=== PATIENT | female | born 1985 | race African-American/Black ===

== ENCOUNTER 2017-05-04 02:36 | Inpatient (IN) | payer SELFPAY ==
[2017-05-04 03:48] LABS: PTT 23.6 SEC (22.9-36.1); Prothrombin Time 15.3 SEC (12.0-14.7)
[2017-05-04 03:53] LABS: ALT (SGPT) 9 U/L (8-55); AST (SGOT) 14 U/L (5-34); Alkaline Phosphatase 33 U/L (40-150); Anion Gap 11 mmol/L (10-20); BUN (Urea Nitrogen) 9 mg/dL (7.0-18.7); Bilirubin, Total 0.4 mg/dL (0.2-1.2); Calc. Creatinine Clearance 0 mL/min (70-130); Calcium 9.1 mg/dL (7.8-10.44); Carbon Dioxide 25 mmol/L (22-29); Chloride 106 mmol/L (98-107); Estimated GFR-MDRD Greater than 90; Globulin 3.5 g/dL (2.4-3.5); Protein, Total 7.5 g/dL (6.0-8.3)
[2017-05-04 04:14] LABS: #Lymphocytes 1.2 thou/uL (1.20-3.40); #Monocytes 0.7 thou/uL (0.11-0.59); #Neutrophils 4.8 thou/uL (1.40-6.50); %Basophils 0.5 % (0.0-1.0); %Eosinophils 0.6 % (0.0-10.0); %Monocytes 10.2 % (0.0-10.0); Anisocytosis SLIGHT = 6-15 cells (100X) (0-5/hpf); Elliptocytes SLIGHT = 2-5 cells (100X) (0-1/hpf); Hematocrit 22.7 % (36.0-47.0); Hypochromia SLIGHT = 6-15 cells (100X) (0-5/hpf); Mean Platelet Volume 5.9 fL (7.4-10.4); Target Cells SLIGHT = 2-5 cells (100X) (0-1/hpf); White Blood Cell (WBC) Count 6.8 thou/uL (4.8-10.8)
[2017-05-04] MEDS ORDERED: Acetaminophen 650 MG Suppository PR PRN (05:57)
[2017-05-04] MEDS ORDERED: Ondansetron HCl/PF 4 MG/2 ML Vial IVP PRN (05:58)
[2017-05-04] MEDS ORDERED: Ondansetron ODT 4 MG TAB SL PRN (05:58)
[2017-05-04] MEDS ORDERED: Morphine 2 MG/ML SYRINGE SLOW IVP PRN (05:58)
[2017-05-04] MEDS ORDERED: Sodium Chloride 0.9% 1,000 ML IV SCH (05:58)
[2017-05-04] MEDS ORDERED: Acetaminophen 325 MG TAB PO PRN (05:58)
[2017-05-04] MEDS: Sodium Chloride 0.9% 1,000 ML IV SCH (06:00)
--- NOTE | 2017-05-04 06:32 | HP ---
PRIMARY CARE PHYSICIAN: None. CHIEF COMPLAINT: Abdominal pain. HISTORY OF PRESENT ILLNESS: Ms. Camarillo is a pleasant 32-year-old lady who was seen at [facility] following transfer from [place]. She reports that she developed pain across her mid abdomen around 1630 hours yesterday. She describ es the pain as sharp, 10/10 at its worst, constant, nonradiating, accompanied by nausea and multiple episodes of vomiting. No known aggravating or relieving factors. She reports that her last bowel movement was yesterday. She also reports that she is passing flatus. She denies any fevers or chills. She denies any chest pain or shortness of breath. REVIEW OF SYSTEMS: The following complete review of systems was negative, unless otherwise mentione d in the HPI or below: Constitutional: Weight loss or gain, sense of well-being, ability to conduct usual activities, exer cise tolerance. Skin/Breast: Rash, itching, changes in hair growth or loss, nail changes, breast lumps, tenderness, swelling, nipple discharge. Eyes: Vision, double vision, tearing, blind spots, pain. ENT/Mouth: Headaches (location, time of onset, duration, precipitating factors), vertigo, lighthead edness, injury. Vision, double vision, tearing, blind spots, pain, nose bleeding, colds, obstruction , discharge, dental difficulties, gingival bleeding, dentures, neck stiffness, pain, tenderness, mas ses in thyroid or other areas. Cardiovascular: Precordial pain, substernal distress, palpitations, syncope, dyspnea on exertion, o rthopnea, nocturnal paroxysmal dyspnea, edema, cyanosis, hypertension, heart murmurs, varicosities, phlebitis, claudication. Respiratory: Pain, shortness of breath, wheezing, stridor, cough, hemoptysis, fever or night sweats . Gastrointestinal: Poor appetite, dysphagia, indigestion, abdominal pain, heartburn, eructation, raquel sea, vomiting, hematemesis, jaundice, constipation, or diarrhea, abnormal stools (demetris-colored, liliya y, bloody, greasy, foul smelling), flatulence, hemorrhoids, recent changes in bowel habits. Genitourinary: Urgency, frequency, dysuria, nocturia, hematuria, polyuria, oliguria, unusual (or ch maximino in) color of urine, stones, hesitancy, change in size of stream, dribbling, acute retention or incontinence, libido, potency. Musculoskeletal: Pain, swelling, redness or heat of muscles or joints, limitation, of motion, muscu lar weakness, atrophy, cramps. Neurologic/Psychiatric: Convulsions, paralyses, tremor, incoordination, parasthesias, difficulties with memory of speech, sensory or motor disturbances, or muscular coordination (ataxia, tremor), emo tional problems, anxiety, depression, previous psychiatric care, unusual perceptions, hallucinations . Allergy/Immunologic: Skin rash, anemia, bleeding tendency, polydipsia, polyuria, intolerance to hea t or cold. PAST MEDICAL HISTORY: Significant for iron deficiency anemia and small-bowel obstruction. PAST SURGICAL HISTORY: Significant for section x4. SOCIAL HISTORY: The patient denies tobacco use, alcohol use or recreational drug use. FAMILY HISTORY: No family history of coronary artery disease. ALLERGIES: CLARITHROMYCIN. CURRENT MEDICATIONS: Ferrous sulfate 325 mg daily. PHYSICAL EXAMINATION: GENERAL: Ms. Camarillo is awake and alert, not in acute distress. VITAL SIGNS: Blood pressure is 100/57, pulse is 59. She is breathing at rate of 18, and saturating 100% on room air. She is afebrile. EYES: No scleral icterus. No conjunctival pallor. ENT: She has a nasogastric tube in place. Dry mucosal membranes, no oropharyngeal erythema or exud ates. NECK: Supple, nontender, normal range of movement, trachea is midline. RESPIRATORY: Accessory muscles of breathing are not active. Chest wall movements are symmetric darien aterally. LUNGS: Clear to auscultation without wheeze, rhonchi or crepitations. CARDIOVASCULAR: S1 and S2 are heard, regular. LUNGS: Peripheral pulses are palpable. No carotid bruit, no pericardial rub. ABDOMEN: Soft, mild tenderness over the mid abdomen, no guarding or rigidity. Bowel sounds are slu ggish, no hepatomegaly, no splenomegaly. NEUROLOGIC: Cranial nerves II through XII are intact, deep tendon reflexes 2+. MUSCULOSKELETAL: Power is 5/5 in all 4 extremities. Normal range of movement at all major extremit y joints. LYMPHATIC: No cervical lymphadenopathy. SKIN: No rashes or subcutaneous nodules. PSYCHIATRIC: Normal mood, normal affect, patient is oriented to person, place, and time. LABORATORY DATA AND IMAGING: Ms. Camarillo's labs and investigations were reviewed. She has normal terrie ctrolytes, normal creatinine and unremarkable liver profile, normal white count, microcytic anemia w ith hemoglobin 6.3, it was 7.6 on 07/07/2015 and at 6.3 on 07/05/2015. Platelet count is normal. I NR is 1.2. She had a CT scan of the abdomen and pelvis with intravenous contrast at [place], which s howed findings concerning for small-bowel obstruction. ASSESSMENT AND PLAN: Ms. Camarillo is a pleasant 32-year-old lady who was seen at [facility] on 05/04/2017. Her problem list includes: 1. Abdominal pain due to small-bowel obstruction: Ms. Camarillo will be admitted to the hospital for f urther management. 2. Small-bowel obstruction: Surgical Service has been consulted by the emergency room physician. She will be kept n.p.o., with nasogastric tube to suction. Pain medications as needed. 3. Microcytic anemia: She reports that she had workup done in the past and it appears that she was diagnosed with iron deficiency anemia. She will need to follow up on this as outpatient. She is r eceiving 2 units packed RBC as ordered by the emergency room physician. Many thanks for allowing me to participate in your patient's care. Please feel free to contact me w ith any questions or concerns. LEVEL OF COMPLEXITY: Moderate. LEVEL OF RISK: Moderate.
--- NOTE | 2017-05-04 12:23 | CON ---
DATE OF CONSULTATION: 05/04/2017 CHIEF COMPLAINT: Small-bowel obstruction. HISTORY OF PRESENT ILLNESS: This is a 32-year-old -[place] female with a history of chronic anemia, who presents with CT evidence of acute small-bowel obstruction, initially having severe mid epigastric pain that was described as 10/10 and sharp, accompanied by severe nausea and multiple epi sodes of vomiting. Had an NG tube placed that has not put out very much. She was passing gas on pr esentation, but no bowel movement for a few days. She had similar symptoms previously in the past, but was found to have normal small bowel follow through. PAST MEDICAL HISTORY: Iron deficiency anemia and small-bowel obstruction. PAST SURGICAL HISTORY: Multiple C-sections. SOCIAL HISTORY: No smoking, alcohol, or other drugs. FAMILY HISTORY: Noncontributory, GI malignancy. ALLERGIES: CLARITHROMYCIN. MEDICINES TAKEN DAILY: Ferrous sulfate. REVIEW OF SYSTEMS: Ten-system review of systems otherwise negative unless described above. PHYSICAL EXAMINATION: VITAL SIGNS: Blood pressure is 97/57, pulse 67, she is afebrile, respirations 16. HEENT: Sclerae are anicteric. Oropharynx clear. NECK: No lymphadenopathy. CHEST: Clear. HEART: Regular rate and rhythm. ABDOMEN: Soft, minimally distended, diffuse, mildly tender without rebound. No abdominal or inguin al hernias. EXTREMITIES: No ischemia or edema to extremities. LABORATORY AND X-RAY FINDINGS: CT scan reveals evidence of small-bowel obstruction. Small bowel fo llow through started this morning, not complete yet. White blood cell count is 6, hemoglobin is 6, platelet count is 294. Sodium 138, potassium 3.9, cre atinine 0.79. ASSESSMENT: Dilated intestine on CT scan. Certainly small-bowel obstruction would be within the di fferential, although small-bowel obstruction secondary to adhesions is unlikely with only history of C-sections. PLAN: See what small bowel follow through results look like. Continue to follow with NG tube. I s uspect she will get better without surgery.
[2017-05-04] MEDS ORDERED: MD-Gastroview 120 ML BOT ONE (13:34)
--- NOTE | 2017-05-04 14:19 | RAD ---
GASTROGRAFIN SMALL BOWEL: Date: 05/04/17 HISTORY: 32-year-old female with small bowel obstruction. COMPARISON: Abdomen 1 view dated 05/04/17. CT scan dated 05/04/17. FINDINGS: Gastrografin contrast media was introduced through the NG tube. There was at least one episode of ga stroesophageal reflux demonstrated around the NG tube. There is some minimal dilatation of the proxi mal mid small bowel loops which transitions to nondilated distal small bowel. Contrast media is note d in the colon after 2.5 hours. There is some dilute residual IV contrast within the kidneys and eliana e denser contrast immediate within the bladder from the prior CT. IMPRESSION: Mild to moderate partial mostly proximal small bowel obstruction with contrast media progressing int o nondilated ileum and into the right colon after 2.5 hours. One episode of gastroesophageal reflux around the NG tube. Contrast media does progress into the colon by 2.5 hours. POS: CARIDAD
[2017-05-05] MEDS: Sodium Chloride 0.9% 1,000 ML IV SCH ×3 (03:03→18:47)
[2017-05-05 05:49] LABS: #Basophils 0.1 thou/uL (0.0-0.2); #Eosinphils 0.2 thou/uL (0.0-0.7); #Neutrophils 4.9 thou/uL (1.40-6.50); %Basophils 1.2 % (0.0-1.0); %Eosinophils 2.8 % (0.0-10.0); %Lymphocytes 24.7 % (21.0-51.0); %Monocytes 11.6 % (0.0-10.0); Hematocrit 33.4 % (36.0-47.0); Mean Platelet Volume 5.4 fL (7.4-10.4); Red Blood Cell (RBC) Count 5.25 mill/uL (4.20-5.40); White Blood Cell (WBC) Count 8.2 thou/uL (4.8-10.8)
[2017-05-05 05:50] LABS: Anion Gap 13 mmol/L (10-20); BUN (Urea Nitrogen) 10 mg/dL (7.0-18.7); Calc. Creatinine Clearance 82 mL/min (70-130); Calcium 8.8 mg/dL (7.8-10.44); Carbon Dioxide 24 mmol/L (22-29); Chloride 107 mmol/L (98-107); Estimated GFR-MDRD Greater than 90
--- NOTE | 2017-05-05 09:29 | PDOC.PN ---
- Subjective Encounter Start Date: 05/05/17 Encounter Start Time: 08:15 -: old records requested/rev Pt seen and examined, chart reviewe din its entirety. This is my first visit with this patient. Admitted early yedstrday for abd pain, dilated bowl on CT. History of PSBO obstrution due ot adhesions abotu 2 years ago, resolved with bowel rest. Seen by PA with surgery team yesterday, kept on NGT, bowel rest and expect to resolve. Pt passing minimal flatus, tolerating chips and sips with NGT to LWS. No F/C, no N/C, no CP or SOB 10 point ROS performed except as stated above - Objective Resuscitation Status: FULL MAR Reviewed: Yes Vital Signs & Weight: Vital Signs (12 hours) Temp Pulse Pulse Resp BP BP Pulse Ox 05/05/17 04:00 98.8 F 88 18 93/52 L 98 05/04/17 22:00 97.7 F 64 18 88/51 L I&O: 05/04/17 05/05/17 05/06/17 06:59 06:59 06:59 Intake Total 75 570 1884 Output Total 170 1100 Balance 75 400 784 Result Diagrams: 05/05/17 04:37 05/05/17 04:37 Radiology Reviewed by me: Yes EKG Reviewed by me: Yes Phys Exam - Physical Examination Constitutional: NAD HEENT: PERRLA, moist MMs, sclera anicteric, oral pharynx no lesions Neck: no nodes, no JVD, supple, full ROM Respiratory: no wheezing, no rales, no rhonchi, clear to auscultation bilateral Cardiovascular: RRR, no significant murmur, no rub Gastrointestinal: soft, non-tender, no distention hypoactive BS in BUQ, RLQ, normal to LLQ, no rebound Musculoskeletal: no edema, pulses present Neurological: non-focal, normal sensation, moves all 4 limbs Lymphatic: no nodes Psychiatric: normal affect, A&O x 3 Skin: no rash, normal turgor, cap refill <2 seconds Dx/Plan (1) Intractable nausea and vomiting Code(s): R11.2 - NAUSEA WITH VOMITING, UNSPECIFIED Status: Acute Comment: better with NGT. (2) Symptomatic anemia Code(s): D64.9 - ANEMIA, UNSPECIFIED Status: Acute Comment: microcytic, hypochromic, chornic. likely Fe deficiency. receive trnasfusion before i could check Fe studies (3) Small bowel obstruction due to adhesions Code(s): K56.5 - INTESTINAL ADHESIONS WITH OBSTRUCTION (POSTIN * DO NOT USE * Status: Acute Comment: symptoms better, surgery following, bowel rest, NGT, I/ O. (4) Microcytic anemia Code(s): D50.9 - IRON DEFICIENCY ANEMIA, UNSPECIFIED Status: Chronic - Plan cont current plan of care * .
--- NOTE | 2017-05-05 13:55 | PRG ---
DATE OF SERVICE: 05/05/2017 SUBJECTIVE: Ms. Alcantara is feeling better, less distention in her abdomen. She had several bowel mo vements yesterday after her small bowel follow through. PHYSICAL EXAMINATION: VITAL SIGNS: Blood pressure 93/52, pulse is 88, and respirations 18. She is afebrile. NG output w as 1100 for the shift; however, she has been eating a lot of ice. ABDOMEN: Soft, it is mildly distended, mildly tender, but she has bowel sounds. ASSESSMENT: Small bowel obstruction, resolving. Small bowel follow through shows slightly slow tra nsit but no obstruction. PLAN: Discontinue NG. Start clear liquids, likely home tomorrow.
[2017-05-06 05:59] LABS: #Basophils 0.1 thou/uL (0.0-0.2); #Eosinphils 0.2 thou/uL (0.0-0.7); #Lymphocytes 2.1 thou/uL (1.20-3.40); #Monocytes 0.8 thou/uL (0.11-0.59); #Neutrophils 3.9 thou/uL (1.40-6.50); %Basophils 0.9 % (0.0-1.0); %Lymphocytes 29.1 % (21.0-51.0); %Monocytes 11.6 % (0.0-10.0); Hematocrit 30.3 % (36.0-47.0); Hypochromia MODERATE=16-30 cells (100X) (0-5/hpf); Macrocytosis SLIGHT = 6-15 cells (100X) (0-5/hpf); Mean Platelet Volume 5.6 fL (7.4-10.4); Microcytosis MODERATE=15-30 cells (100X) (0-5/hpf); Red Blood Cell (RBC) Count 4.65 mill/uL (4.20-5.40); Target Cells SLIGHT = 2-5 cells (100X) (0-1/hpf); White Blood Cell (WBC) Count 7.1 thou/uL (4.8-10.8)
[2017-05-06 06:01] LABS: Anion Gap 9 mmol/L (10-20); BUN (Urea Nitrogen) 6 mg/dL (7.0-18.7); Calc. Creatinine Clearance 88 mL/min (70-130); Calcium 8.1 mg/dL (7.8-10.44); Carbon Dioxide 24 mmol/L (22-29); Chloride 108 mmol/L (98-107); Estimated GFR-MDRD Greater than 90
[2017-05-06] MEDS: Potassium Chloride 20 MEQ TAB PO SCH ×3 (08:45→15:31)
[2017-05-06] MEDS: Sodium Chloride 0.9% 1,000 ML IV SCH ×2 (08:45→22:53)
--- NOTE | 2017-05-06 09:32 | PDOC.PN ---
- Subjective Encounter Start Date: 05/06/17 Encounter Start Time: 08:15 Pt complaining of periumbilical abd pain, increased with palpation, rates 3-4. no rebound, no N/V, no F/C, no cough or sputum production. NO melena, no hematochezia or hematemesis NGT removed, started on liquid diet, tolerated ok and ate 100% without N/V. Surgery to revisit today - Objective Resuscitation Status: Full MAR Reviewed: Yes Vital Signs & Weight: Vital Signs (12 hours) Temp Pulse Resp BP Pulse Ox 05/06/17 08:42 98.2 F 75 16 99/66 100 05/06/17 04:00 98.4 F 71 16 89/54 L 98 05/06/17 00:00 98.3 F 64 14 90/54 L 98 I&O: 05/05/17 05/06/17 05/07/17 06:59 06:59 06:59 Intake Total 570 3604 Output Total 170 1700 Balance 400 1904 Result Diagrams: 05/06/17 05:10 05/06/17 05:10 Radiology Reviewed by me: Yes EKG Reviewed by me: Yes Phys Exam - Physical Examination Constitutional: NAD HEENT: PERRLA, moist MMs, sclera anicteric, oral pharynx no lesions Neck: no nodes, no JVD, supple, full ROM Respiratory: no wheezing, no rales, no rhonchi, clear to auscultation bilateral Cardiovascular: RRR, no significant murmur, no rub Gastrointestinal: soft, no distention, positive bowel sounds slight tenderness to light and deep palp to periumbilical region Musculoskeletal: no edema, pulses present Neurological: non-focal, normal sensation, moves all 4 limbs Lymphatic: no nodes Psychiatric: normal affect, A&O x 3 Skin: no rash, normal turgor, cap refill <2 seconds Dx/Plan (1) Intractable nausea and vomiting Code(s): R11.2 - NAUSEA WITH VOMITING, UNSPECIFIED Status: Acute Comment: better with NGT. stable since it was removed. overlal improved. tolerating liquid diet. advance per surgery team (2) Symptomatic anemia Code(s): D64.9 - ANEMIA, UNSPECIFIED Status: Acute Comment: microcytic, hypochromic, chornic. likely Fe deficiency. receive transfusion before i could check Fe studies. Slightly down today form 9.9 to 8.7. No S/Sx of blood loss. recheck in AM (3) Small bowel obstruction due to adhesions Code(s): K56.5 - INTESTINAL ADHESIONS WITH OBSTRUCTION (POSTIN * DO NOT USE * Status: Acute Comment: symptoms better, surgery following, bowel rest, NGT out , monitor I/O. (4) Microcytic anemia Code(s): D50.9 - IRON DEFICIENCY ANEMIA, UNSPECIFIED Status: Chronic (5) Hypokalemia Code(s): E87.6 - HYPOKALEMIA Status: Acute Comment: replace po - Plan cont current plan of care * .
--- NOTE | 2017-05-06 11:45 | PRG ---
DATE OF SERVICE: 05/06/2017 SUBJECTIVE: Ms. Alcantara feels okay. She still has some cramping in her abdomen. She has not had a bowel movement since the multiple that she had after the small bowel follow through yesterday. She denies nausea. Tolerating the clear liquids without difficulty. OBJECTIVE: VITAL SIGNS: She is afebrile and her vital signs are stable. ABDOMEN: Soft and minimally tender below the umbilicus. LABORATORY DATA: Today, her white blood cell count is 7 with a normal differential. ASSESSMENT: Unlikely to have had a small-bowel obstruction with normal small bowel follow through. We will advance to full liquids. Continued cramping abdominal pain that is mild. We will check ur inalysis to rule out underlying urinary tract infection. She probably will need GI workup at some p oint given her chronic anemia, although this has been present since , I am not sure she does no t seem to recall either having upper and lower endoscopy done and now with having her GI symptoms. A GI workup could likely be performed either during this hospitalization or as an outpatient after s he is discharged Advance to full liquids. We will follow with you.
[2017-05-06 14:03] LABS: Bilirubin Negative (Negative); Blood, Urine Negative (Negative); Glucose, Urine (Dipstick) Negative (Negative); Ketone, Urine Negative (Negative); Nitrite Negative (Negative); Protein, Urine (Dipstick) Negative (Neg-Trace)
[2017-05-06 14:08] LABS: Bacteria/HPF None Seen HPF (None Seen); Hyaline Casts/LPF 0-3 HYALINE CAST LPF (0-3 Hyaline); RBC/HPF 0-3 HPF (0-3); Squamous Epithelial 0-3 HPF (0-3); WBC/HPF 0-3 HPF (0-3)
[2017-05-06 14:15] LABS: Yeast-All Forms None Seen HPF (None Seen)
[2017-05-07 05:04] LABS: Anion Gap 9 mmol/L (10-20); BUN (Urea Nitrogen) Less than 4 mg/dL (7.0-18.7); Calc. Creatinine Clearance 86 mL/min (70-130); Calcium 8.3 mg/dL (7.8-10.44); Carbon Dioxide 22 mmol/L (22-29); Chloride 110 mmol/L (98-107); Estimated GFR-MDRD Greater than 90
[2017-05-07 05:21] LABS: #Eosinphils 0.2 thou/uL (0.0-0.7); #Lymphocytes 2.3 thou/uL (1.20-3.40); #Monocytes 0.8 thou/uL (0.11-0.59); #Neutrophils 3.6 thou/uL (1.40-6.50); %Basophils 0.3 % (0.0-1.0); %Eosinophils 3.2 % (0.0-10.0); %Monocytes 11.3 % (0.0-10.0); Hematocrit 30.3 % (36.0-47.0); Hypochromia MODERATE=16-30 cells (100X) (0-5/hpf); Mean Platelet Volume 5.1 fL (7.4-10.4); Microcytosis SLIGHT = 6-15 cells (100X) (0-5/hpf); Polychromasia SLIGHT = 2-3 cells (100X) (0-2/hpf); Red Blood Cell (RBC) Count 4.59 mill/uL (4.20-5.40); Tear Drops SLIGHT = 2-5 cells (100X) (0-1/hpf); White Blood Cell (WBC) Count 6.9 thou/uL (4.8-10.8)
--- NOTE | 2017-05-07 08:18 | PRG ---
DATE OF SERVICE: 05/07/2017 SUBJECTIVE: Ms. Camarillo tolerated the full liquid diet yesterday evening. She has not eaten breakfas t yet today, except for some of her juice. She does have some cramping, mild lower abdominal pain. OBJECTIVE: VITAL SIGNS: Blood pressure is 96/54, pulse 66, and respirations 16. She is afebrile. She has not had a bowel movement since her small bowel follow-through, but states that she only usually has 2 a week. ABDOMEN: Soft, mildly tender diffusely without guarding or rebound. LABORATORY DATA: Her white blood cell count is 6.9, hemoglobin is 8.7, and creatinine 0.76. ASSESSMENT: Partial small-bowel obstruction, resolved, versus enteritis second episode. Ms. Camarillo really has no reason to have significant abdominal adhesions causing small-bowel obstruction. She h as been admitted twice with dilation of her small intestine, but has had normal small bowel follow-t hrough each time. I do think this represents obstructive disease; however, she does have some sort of chronic enteritis. She also has a history of chronic anemia that she states has been present sin ce she was a child; she came in with a hemoglobin of 6 this time. She denies previous history of up per or lower endoscopy. PLAN: I think she does need to be seen by Gastroenterology at some point, inpatient or outpatient, to rule out a GI source of this chronic anemia. We will ask Dr. Jimenez to see.
--- NOTE | 2017-05-07 09:29 | PDOC.PN ---
- Subjective Encounter Start Date: 05/07/17 Encounter Start Time: 09:28 Patient seen at bedside. Complains of mild umbilical discomfort, no vomiting reported. Passing gas. - Objective MAR Reviewed: Yes Vital Signs & Weight: Vital Signs (12 hours) Temp Pulse Resp BP Pulse Ox 05/07/17 08:06 98 F 64 16 101/65 100 05/07/17 04:00 98.0 F 66 16 96/54 L 99 I&O: 05/06/17 05/07/17 05/08/17 06:59 06:59 06:59 Intake Total 3604 3245 Output Total 1700 700 Balance 1904 2545 Result Diagrams: 05/07/17 04:33 05/07/17 04:33 Phys Exam - Physical Examination Constitutional: NAD HEENT: moist MMs Neck: no JVD Respiratory: no wheezing, clear to auscultation bilateral Cardiovascular: RRR Gastrointestinal: soft, positive bowel sounds mild tenderness in the umbilical area, no rebound, no guarding Musculoskeletal: no edema Neurological: normal sensation, moves all 4 limbs Psychiatric: A&O x 3 Dx/Plan (1) Small bowel obstruction Code(s): K56.609 - UNSP INTESTNL OBST, UNSP TO PARTIAL VERSUS COMPLETE OBST Status: Acute (2) Microcytic anemia Code(s): D50.9 - IRON DEFICIENCY ANEMIA, UNSPECIFIED Status: Chronic - Plan cont current plan of care, out of bed/ambulate, DVT proph w/SCDs * Continue with IV Fluids. * Appreciate GS input. Advance diet as tolerated * Will require GI evaluation ( inpatient vs outpatient) for anemia (presumably BJ) * Daily Labs
[2017-05-07] MEDS: Sodium Chloride 0.9% 1,000 ML IV SCH (12:12)
--- NOTE | 2017-05-07 12:49 | CON ---
DATE OF CONSULTATION: 05/07/2017 HISTORY OF PRESENT ILLNESS: The patient is a 32-year-old -[place] female, who came in with a 1-week history of worsening abdominal pain, nausea, vomiting. The patient reports 24-hour prior t o presentation, she was unable to keep any food or liquids down. She denies any melena, hematochezi a, any weight loss. She had a similar episode 2 years ago, she was diagnosed with small bowel obstr uction and this was treated with conservative measures. Her anemia was noted there and as far as he r anemia is concerned, she has had this which she remembers is her whole life even to be having gayle ng a child. She reports she has also had heavy periods ever since she was at 12 years old. The pat ient underwent nasogastric suction, seemed to resolve. She is feeling well now. PAST MEDICAL HISTORY: Includes anemia and previous small bowel obstruction. PAST SURGICAL HISTORY: Includes x5 and tubal ligation. SOCIAL HISTORY: She does not smoke or drink. MEDICATIONS: Iron. ALLERGIES: BIAXIN. FAMILY HISTORY: Negative for GI or liver disease. REVIEW OF SYSTEMS: Constitutional: No fever or chills. No weight loss. Eyes: No blurred vision, double vision. ENT: No sore throat or earaches. Cardiovascular: No chest pain or palpitations. Pulmonary: No shortness of breath, cough or wheezing. Gastrointestinal: See above. :. No uday turia or dysuria. Musculoskeletal: No joint pain or muscle aches. Skin: No rashes. Neurologic: No numbness or seizure activity. PHYSICAL EXAMINATION: VITAL SIGNS: Temperature 98, pulse 64, respirations 16, and blood pressure 101/65. HEENT: Unremarkable. NECK: Supple. CHEST: Clear. CARDIOVASCULAR: Regular rate and rhythm. ABDOMEN: Soft and nontender without organomegaly or masses. Bowel sounds present and normoactive. RECTAL: Deferred. EXTREMITIES: Normal. NEUROLOGIC: Nonfocal. LABORATORY DATA: Showed admission hemoglobin of 63. Hematocrit 22.7, MCV of 57. PT is 15.3 with a n INR of 1.2. Chemistries show a previous iron level of 9, TIBC of 408 and a ferritin of 2.24. ASSESSMENT: 1. Small bowel obstruction -- resolved. 2. Severe chronic iron deficiency anemia of unknown etiology -- this may be related to the patient' s heavy periods or possibly some underlying chronic disease such as celiac or possibly occult inflam matory bowel disease. RECOMMENDATIONS: 1. We would probably consider IV iron while the patient is here. 2. May need upper and lower endoscopy and the only consideration is being able to tolerate the prep .
[2017-05-07] MEDS ORDERED: Iron Dextran 500 MG in Sodium Chloride 0.9% 250 ML IVPB SCH (13:30)
[2017-05-07] MEDS ORDERED: GoLYTELY 4,000 ml Bottle PO SCH (16:00)
--- NOTE | 2017-05-07 16:24 | CON ---
DATE OF CONSULTATION: 05/07/2017 REASON FOR CONSULTATION: Iron deficiency anemia. HISTORY OF PRESENT ILLNESS: The patient is a 32-year-old -[place] woman, who was admitted f or a 1-week history of worsening abdominal pain, nausea, and vomiting. She was found to have imagin g evidence of a small bowel obstruction and was admitted for inpatient care. She has responded to n asogastric suction and IV fluids, and is feeling much better. She had a similar episode in 2014, wh ich also resolved with medical management. There is no other history to suggest inflammatory bowel disease or chronic gastrointestinal blood loss. She does have a long history of documented iron def iciency anemia with a ferritin of less than 10 in 2015 and marked microcytic hyperchromic indices. A hemoglobin electrophoresis in the past has been normal. She has been on oral iron supplementation for a long period of time without response. There is no family history of a blood disorder. She d oes have a long history of menorrhagia, which likely accounts for the iron deficiency. On this admi ssion, she was admitted with a hemoglobin of 6.3 and MCV 57. She has received a single unit of bloo d and her hemoglobin is greater than 8. I am asked to see the patient and provide further managemen t recommendations regarding the iron deficiency anemia. ALLERGIES: She describes sensitivity to BIAXIN. MEDICATIONS: Oral iron. MEDICAL ILLNESS: She has no other significant medical illnesses except for the anemia and the previ ous small bowel obstruction. PAST SURGICAL HISTORY: She has had prior x4 and tubal ligation. SOCIAL HISTORY: She does not smoke or drink alcohol. She does not use illicit drugs. She resides in [place] with her children. REVIEW OF SYSTEMS: Except as mentioned in the history of present illness, she denies significant ca rdiopulmonary, GI, , musculoskeletal, or neurological complaints. PHYSICAL EXAMINATION: VITAL SIGNS: Temperature 98.2; pulse 69, regular; respirations 18; blood pressure 97/62. GENERAL: The patient is a well-developed and well-nourished woman, in no acute distress. She is al ert, oriented, and cooperative. She is sitting up in bed, appropriate in conversation. HEENT: The extraocular movements are intact. Pupils are equal, round, and reactive to light. NECK: Supple. LUNGS: Clear. CARDIOVASCULAR: Regular rate and rhythm without murmur, rub, gallop, or click. ABDOMEN: No tenderness, organomegaly, masses, bruits, or ascites. EXTREMITIES: No clubbing, cyanosis, or edema. SKIN: Normal. LYMPH: No adenopathy. MUSCULOSKELETAL: No active arthritis. NEUROLOGIC: No focal findings. Cranial nerves II through XII are grossly intact. LABORATORY DATA: CBC on admission reveals white blood cell count 6.8, hemoglobin 6.3, MCV 55.5, RDW 19.2%, and platelet count 294,000. Electrolytes and other chemistries are normal. Routine coagula tion studies are normal. IMPRESSION: 1. Chronic iron deficiency anemia likely secondary to menorrhagia. 2. Recurrent small bowel obstruction. RECOMMENDATIONS: The most likely explanation for the iron deficiency is menorrhagia. There is a sm all possibility of inflammatory bowel disease contributing to the iron deficiency. Although, this s eems unlikely as well. There has been no response to oral iron supplementation. RECOMMENDATIONS: I plan intravenous iron 500 mg today and she will follow up in the office for cont inued iron replacement as needed. Thanks very much for allowing me to provide my recommendations.
[2017-05-08] MEDS ORDERED: Ondansetron ODT 4 MG TAB PO PRN (08:51)
[2017-05-08] MEDS ORDERED: Ondansetron HCl/PF 4 MG/2 ML Vial IVP PRN ×2 (08:51→09:56)
[2017-05-08] MEDS ORDERED: Senokot 8.6 MG TAB PO PRN (08:51)
[2017-05-08] MEDS ORDERED: Famotidine 20 MG TAB PO SCH (09:00)
[2017-05-08] MEDS ORDERED: Docusate 100 MG CAP PO SCH (09:00)
[2017-05-08] MEDS ORDERED: Promethazine HCl 25 MG/ML VIAL SLOW IVP PRN (09:56)
--- NOTE | 2017-05-08 10:32 | OP ---
PREOPERATIVE DIAGNOSIS: Iron deficiency anemia. DESCRIPTION OF THE PROCEDURE: After informed consent was obtained, the patient placed in the left l ateral decubitus position. Anesthesia administered per the Anesthesia Department. Forward viewing endoscope was inserted into esophagus under direct visualization with ease and passed to the second portion of the duodenum with ease. The second portion of the duodenum was normal. Random biopsies were taken from the second portion. The duodenal bulb was normal. The pylorus was normal. The ant rum, body, fundus, and cardia were normal except for some focal gastritis in the body of the stomach . Biopsies were taken of this focal gastritis. Retroflexion in the stomach was otherwise normal. The esophagus was normal throughout. ASSESSMENT: 1. Focal gastritis - post biopsy. 2. Otherwise, normal esophagogastroduodenoscopy. RECOMMENDATIONS: 1. Await histopathology. 2. Proceed with colonoscopy. DESCRIPTION OF THE PROCEDURE: After informed consent was obtained, the patient was placed in the le ft lateral decubitus position. Anesthesia administered per the Anesthesia Department. Forward view ing endoscope was inserted into the rectum after perianal inspection and rectal exam were normal and passed to the cecum with ease. The cecum, ileocecal valve, and appendiceal orifice were normal. T he prep was excellent. The terminal ileum was normal. The ascending, transverse, descending, sigmo id, and rectum were normal. Retroflexion in the rectum was normal. Slightly nodular colonic mucosa was noted diffusely throughout the colon, so some random biopsies were performed. ASSESSMENT: 1. Nodular colonic mucosa - status post biopsy. 2. Otherwise, normal ileal colonoscopy. RECOMMENDATION AND RECOMMENDATIONS: 1. Await histopathology. 2. Stable for discharge from GI standpoint.
[2017-05-08] MEDS: Sodium Chloride 0.9% 1,000 ML IV SCH (10:43)
[2017-05-08 12:00] VITALS: BP 96/65; TEMP 97.5
--- NOTE | 2017-05-08 13:00 | DIS ---
DATE OF ADMISSION: 05/04/2017 DATE OF DISCHARGE: 05/08/2017 DISCHARGE DISPOSITION: Home. FOLLOWUP: 1. Follow up with primary care physician in 1 week. Please note that patient does not have a PCP a t this time. She was advised to follow up with [facility] in 1 week. 2. Follow up with Gastroenterology, Dr. Al Jimenez, for biopsy report. 3. Follow up with Oncology, Dr. Garcia, on 05/18/2017 as scheduled. ALLERGIES: Patient is allergic to CLARITHROMYCIN. DISCHARGE MEDICATIONS: 1. Pepcid 20 mg b.i.d. [id number]. 2. Ferrous sulfate 325 mg 3 times daily. The patient was seen and examined on the day of discharge. Denies any new complaints. No chest caity n, shortness of breath, palpitations, melena, or hematochezia reported. BRIEF HOSPITAL COURSE: Patient is a 32-year-old female, who presented to the emergency room with ab dominal discomfort. Please refer to the history and physical for further details. The patient was admitted to the hospital with a diagnosis of suspected bowel obstruction. A CT scan of the abdomen and pelvis done in the emergency room showed findings concerning for small-bowel obs truction. Her labs also showed hemoglobin of 6.3, requiring 2 units of pRBC. She was seen by [facility] al Surgery, Dr. Casey. This was conservatively managed with NG tube, n.p.o. status, and IV fluids . Repeat KUB showed improvement. For anemia, the patient was evaluated by Gastroenterology, Dr. Jimenez. She underwent EGD and colonosc opy done today. EGD showed focal gastritis, status post biopsy. Colonoscopy showed nodular colonic mucosa, status post biopsy. She has been cleared by consultants for discharge. She also received IV iron per Hematology/Oncology Service. FINAL DIAGNOSES: 1. Small-bowel obstruction, resolved. 2. Anemia, suspected secondary to menorrhagia/iron deficiency anemia (hypochromic, microcytic). 3. Hypokalemia, corrected. 4. History of chronic anemia. 5. Abdominal discomfort secondary to #1. Plan of care was discussed with the patient. She stated understanding. SIGNIFICANT LABORATORY DATA: 1. Hemoglobin at discharge is 8.7 with hematocrit 30.3. 2. Potassium on the day of discharge is 3.8. Lowest potassium was 3.2. 3. Urinalysis was negative for WBC or bacteria. 4. CT scan of the abdomen and pelvis as discussed above. INPATIENT PROCEDURES: The patient underwent EGD and colonoscopy as discussed above.
== END 2017-05-08 15:28 | disposition home or self-care (01) | DRG 390 ==
LOC: ERS 02:36 → 2NO 04:39
PROVIDERS: ADMIT Internal Medicine; ATTEND Internal Medicine
PROC: 30233N1 Transfusion of Nonautologous Red Blood Cells into Peripheral Vein, Percutaneous Approach (ICD-10-PCS; principal; 2017-05-04)
PROC: 0DB98ZX Excision of Duodenum, Via Natural or Artificial Opening Endoscopic, Diagnostic (ICD-10-PCS; 2017-05-08)
PROC: 0DB68ZX Excision of Stomach, Via Natural or Artificial Opening Endoscopic, Diagnostic (ICD-10-PCS; 2017-05-08)
PROC: 0DBE8ZX Excision of Large Intestine, Via Natural or Artificial Opening Endoscopic, Diagnostic (ICD-10-PCS; 2017-05-08)
DX: K56.609 Unspecified intestinal obstruction, unspecified as to partial versus complete obstruction (principal); E87.6 Hypokalemia; D50.0 Iron deficiency anemia secondary to blood loss (chronic); N92.0 Excessive and frequent menstruation with regular cycle; K29.70 Gastritis, unspecified, without bleeding
CPT/HCPCS: 36415; 36430; 74250; 80048; 81001; 84703; 85025; 85610; 85730; 86850; 86900; 86901; 87077; 87086; 88305; 88312; 99285; A4216; J1750; J2270; J2405; J7050; P9016

== ENCOUNTER 2018-10-25 13:09 | Inpatient (IN) | payer SELFPAY ==
[2018-10-25] MEDS ORDERED: Acetaminophen 650 MG Suppository PR PRN (14:46)
--- NOTE | 2018-10-25 15:12 | HP ---
PRIMARY CARE PROVIDER: None. CHIEF COMPLAINT: Vomiting. HISTORY OF PRESENT ILLNESS: Ms. Camarillo is a pleasant 33-year-old lady, who was seen at [facility] on October 25, 2018. She was hospitalized at this facility in 2017 for bowel obstruction, which resolved with conservative measures. She reports that she was doing well until yesterday. Yesterday, she started vomiting. She reports vomiting 20 times since yesterday. She also reports nausea. She reports pain across her mid abdomen, sharp, on and off, 9/10 at its worst, no known aggravating or relieving factors. Her last bowel movement was today morning. She reports that she is not passing flatus since this morning. She denies any fevers or chills. She denies any palpitations. REVIEW OF SYSTEMS: All other systems reviewed and found to be negative. PAST MEDICAL HISTORY: Bowel obstruction x2, iron deficiency anemia. PAST SURGICAL HISTORY: section x4. SOCIAL HISTORY: Occasional alcohol use. No tobacco use or recreational drug use. FAMILY HISTORY: History of coronary artery disease. ALLERGIES: CLARITHROMYCIN. CURRENT MEDICATIONS: None. PHYSICAL EXAMINATION: GENERAL: On examination, Ms. Camarillo is awake and alert, not in acute distress. VITAL SIGNS: Blood pressure is 98/65, pulse 87, respiratory rate 16, and oxygen saturation 97% on room air. She is afebrile. EYES: No scleral icterus. No conjunctival pallor. ENT: Dry mucosal membranes. No oropharyngeal erythema or exudates. NECK: Supple, nontender, trachea is midline. RESPIRATORY: Accessory muscles of breathing are not active. Chest wall movements are symmetric bilaterally. LUNGS: Clear to auscultation without wheeze, rhonchi, or crepitations. CARDIOVASCULAR: S1 and S2 are heard, regular. Peripheral pulses palpable. No carotid bruit. No pericardial rub. ABDOMEN: Soft. Mild tenderness in the mid abdomen. No guarding or rigidity. Sluggish bowel sounds. NEUROLOGIC: Cranial nerves 2 through 12 are intact. SKIN: No rashes or subcutaneous nodules. MUSCULOSKELETAL: Power is 5/5 in all 4 extremities. LYMPHATIC: No cervical lymphadenopathy. PSYCHIATRIC: Normal mood, normal affect. The patient is oriented to person, place, and time. LABORATORY DATA: Ms. Camarillo's labs and investigations were reviewed. She had CT scan of the abdomen and pelvis, which showed findings consistent with small bowel obstruction with a likely transition point in the left lower abdomen/pelvis adjacent to the uterus. She has normal white count, microcytic anemia with hemoglobin 6.8, normal platelet count, normal sodium, normal potassium, normal creatinine. Serum test is negative. Urinalysis is negative for nitrite and leukocyte esterase. ASSESSMENT AND PLAN: Ms. Camarillo is a pleasant 33-year-old lady, who was seen at [facility] on October 25, 2018. Her problem list includes: 1. Bowel obstruction: Ms. Camarillo is presenting with bowel obstruction. She will be admitted to the hospital for further management. She has an NG tube in place. General Surgery Service will be consulted for opinion and help with management. We will provide her intravenous hydration. 2. Iron deficiency anemia: She is currently not on any medications at home. We will start her on iron supplementation once she is able to take oral medications. 3. Level of risk: Moderate. 4. Level of complexity: Moderate. Job ID: [id number]
[2018-10-25] MEDS ORDERED: Morphine 4 MG/ML VIAL ONE (15:31)
--- NOTE | 2018-10-25 16:39 | CON ---
DATE OF CONSULTATION: HISTORY OF PRESENT ILLNESS: The patient is being seen in consultation for a suspected small bowel obstruction. The patient is currently in the emergency room. She was transferred here from [facility] after an abdominal and pelvis CT had findings consistent with small bowel obstruction with a likely transition point in the left lower abdomen/pelvis adjacent to the uterus. The patient has history of same. This would be reportedly the third one in 4 years. Her last and only abdominal surgeries were C-sections. The patient is a 33-year-old woman, who this morning woke up and reported having multiple episodes of emesis that actually started the day before, but had markedly increased this morning. She reports that she did have a bowel movement today and has been passing gas this morning, but does not recall when the last time she has passed gas, and denies having had any flatus since being in our emergency room. She denies fever, chills, or weight loss. She denies any ill contacts, and states that this feels just like the previous two. ALLERGIES: CLARITHROMYCIN. CURRENT MEDICATIONS: None. PAST MEDICAL HISTORY: Iron deficiency anemia, bowel obstruction x2. PAST SURGICAL HISTORY: x4. SOCIAL HISTORY: The patient lives at home with family. Does not work at this time. She drinks alcohol occasionally and denies any tobacco or drug use. PHYSICAL EXAMINATION: VITAL SIGNS: Blood pressure 100/65, heart rate 89, respirations 19, oxygen saturation 99% on room air, and temperature is 98.6. GENERAL: The patient is sitting up in the ER bed. She is awake, alert, and oriented x3. She appears uncomfortable, but in no great distress. HEENT. Head is normocephalic and atraumatic. Eyes, extraocular movements intact. PERRLA bilaterally. Ears are atraumatic without discharge. Nose, atraumatic without discharge. Oropharynx is clear. NECK: Nontender. There is no JVD. Trachea is midline. There is no lymphadenopathy. LUNGS: Clear to auscultation with good inspiratory and expiratory effort. HEART: Regular rate and rhythm. ABDOMEN: Soft, tender primarily to the left lower quadrant and the periumbilical area. There is no rebound tenderness. EXTREMITIES: Neurovascularly intact x4. There is no pitting edema. BACK: Atraumatic and nontender. There is no CVA tenderness. LABORATORY FINDINGS: White blood cell count 7.3, hemoglobin 6.8, hematocrit 25.7, platelets 227. Sodium 137, potassium 3.6, chloride 105, CO2 of 20, BUN 9, creatinine 0.85, glucose 108, total bilirubin 0.4, AST 22, ALT 13, alkaline phosphatase 43, lipase 36. Serum test is negative. Urinalysis is positive for protein, glucose, and ketones. There are no wbc's, LE, nitrite, or bacteria. RADIOGRAPHIC EXAM: CT of the abdomen and pelvis with IV contrast shows findings are consistent with small bowel obstruction with a likely transition point in the left lower abdomen/pelvis adjacent to the uterus. ASSESSMENT: 1. Abdominal pain. 2. CT findings consistent with small bowel obstruction. 3. History of iron deficiency anemia. 4. History of section x4. 5. History of small bowel obstruction x2, resolved with conservative therapy. PLAN: Plan will be to admit the patient to the medicine floor. She will have NG tube to low intermittent suction, IV hydration, nonnarcotic pain medication, and serial exams. The evaluation, examination, laboratory, and radiographic findings have been discussed with Dr. Augustine, who will examine the patient on the surgical floor. Job ID: [id number]
[2018-10-25 16:42] VITALS: BMI 23.0
[2018-10-25] MEDS: Sodium Chloride 0.9% 1,000 ML IV SCH (16:49)
--- NOTE | 2018-10-25 17:35 | PRG ---
DATE OF SERVICE: 10/25/2018 SUBJECTIVE: Ms. Alcantara is a 33-year-old woman with previous 3 C-sections. The patient presented with recurrent abdominal pain. She was seen in consultation by Acute Care Surgery PA, Tony Glasgow. I have reviewed the notes as dictated by Myah and I do agree with his findings and plan, as we both conferred. At the time of this visit, the patient is awake and alert. She reports decrease in abdominal pain from the last time she was seen by Myah. The pain is now rated at 7/10, it was previously 9/10. She denies any nausea or vomiting. She did pass some flatus within the last 1 hour. The patient tells me she has had 2 previous bouts of abdominal pain associated with small bowel obstruction. The first one was quite severe. The last bout was noted as severe as a current episode. OBJECTIVE: VITAL SIGNS: Right now, includes blood pressure 104/67, pulse 77, respiratory rate is 18, and temperature 97.8 degrees Fahrenheit. This is stable since initial presentation to the Emergency Department. ABDOMEN: Soft, moderately distended. She has point tenderness in left lower quadrant greater than right, but no gross rebound tenderness present. Bowel sounds in all 4 quadrants appear normoactive. I have reviewed the CT scan of the abdomen and pelvis, which was obtained earlier in [place], which reveals multiple distended loops of proximal small bowel and decompressed distal small bowel. No pneumoperitoneum, pneumatosis intestinalis, or significant free fluid is noted. I have also reviewed the laboratory studies including normal CBC and essentially unremarkable metabolic profile. IMPRESSION: Recurrent acute small bowel obstruction. No evidence of peritonitis. PLAN: We will continue with bowel rest with nasogastric tube decompression as the patient's abdominal pain appears to be resolving. We will continue with serial physical examination and consider obtaining a small bowel followthrough tomorrow. If the bowel obstruction fails to resolve, there is no acute surgical indication for this patient at this time. However, surgical indication will be considered for intractability or worsening symptoms. Above findings and plan discussed with the patient, who indicates understanding of information given. I have answered her questions. Job ID: [id number]
[2018-10-26] MEDS: Sodium Chloride 0.9% 1,000 ML IV SCH ×3 (02:16→20:22)
[2018-10-26 07:12] LABS: Anion Gap 8 mmol/L (10-20); BUN (Urea Nitrogen) 7 mg/dL (7.0-18.7); Calc. Creatinine Clearance 97 mL/min (70-130); Calcium 8.1 mg/dL (7.8-10.44); Carbon Dioxide 24 mmol/L (22-29); Chloride 112 mmol/L (98-107); Estimated GFR-MDRD Greater than 90; Glucose 79 mg/dL (70-105); Potassium 3.4 mmol/L (3.5-5.1); Sodium 141 mmol/L (136-145)
[2018-10-26 07:45] LABS: Hemoglobin 6.5 g/dL (12.0-16.0); Mean Corpuscular HGB CONC 27.9 g/dL (32.0-36.0); Mean Corpuscular Hemoglobin 16.3 pg (27.0-31.0); Mean Corpuscular Volume 58.3 fL (78.0-98.0); Red Blood Cell (RBC) Count 4.02 mill/uL (4.20-5.40)
[2018-10-26 10:25] LABS: #Eosinphils 0.1 thou/uL (0.0-0.7); #Lymphocytes 1.8 thou/uL (1.20-3.40); #Monocytes 0.7 thou/uL (0.11-0.59); #Neutrophils 4.9 thou/uL (1.40-6.50); %Basophils 0.3 % (0.0-1.0); %Eosinophils 1.1 % (0.0-10.0); %Lymphocytes 23.8 % (21.0-51.0); %Monocytes 9.7 % (0.0-10.0); Anisocytosis SLIGHT = 6-15 cells (100X) (0-5/hpf); Hypochromia MARKED = >30 cells (100X) (0-5/hpf); MDiff Complete? YES; Mean Platelet Volume 6.3 fL (7.4-10.4); Microcytosis MODERATE=15-30 cells (100X) (0-5/hpf); Platelet Count 209 thou/uL (130-400); Platelet Morphology Comment Appears Adequate; RBC Distribution Width 19.4 % (11.5-14.5); White Blood Cell (WBC) Count 7.5 thou/uL (4.8-10.8)
[2018-10-26] MEDS ORDERED: MD-Gastroview 120 ML BOT ONE (10:48)
--- NOTE | 2018-10-26 11:35 | RAD ---
Exam: Small bowel series: HISTORY: Small bowel obstruction FINDINGS: Patient was given Gastrografin per the NG tube. No fluoroscopy was performed. Minimal small bowel dil atation in the midportion with passage of contrast into the colon by one and half hours. No high-grade bowel obstruction. Minimal parenchymal changes in the right lung base. IMPRESSION: Possible mild partial small bowel obstruction with mild mid small bowel dilatation but passage of con trast media into the colon by 1.5 hours.
[2018-10-26] MEDS ORDERED: Acetaminophen 325 MG TAB PO PRN (12:22)
--- NOTE | 2018-10-26 13:06 | PRG ---
DATE OF SERVICE: 10/26/2018 SUBJECTIVE: Ms. Alcantara is a 33-year-old man with recurrent abdominal pain secondary to acute small bowel obstruction. Overnight, the patient reports slightly improved abdominal pain. By this morning, she is passing some flatus. No bowel movement yet. OBJECTIVE: VITAL SIGNS: Blood pressure 108/77, pulse 68, respiratory rate 20, temperature 98.2 degrees Fahrenheit, and oxygen saturation 98% on room air. HEART: Regular rate and rhythm. LUNGS: Clear to auscultation bilaterally. ABDOMEN: Soft, moderately distended, but nontender to palpation. She clearly has no gross rebound tenderness present. LABORATORY FINDINGS: Today include CBC with 7500 white blood cells, hemoglobin and hematocrit of 6.5 and 23.4 respectively. Platelet count is 209,000. Metabolic profile; sodium is 141, potassium is 3.4, chloride is 112, bicarb is 24, BUN is 7, creatinine is 0.77, and glucose is 79. Small bowel follow-through obtained today reveals contrast which had entered the colon at 1.5 hours. IMPRESSION: Acute small bowel obstruction, resolving. PLAN: 1. We will discontinue nasogastric tube and initiate clear liquid diet. There remains no acute surgical indication for this patient at this time. 2. We will check serum magnesium and phosphorus and correct abnormal electrolytes accordingly. Job ID: [id number]
[2018-10-26 13:12] LABS: Magnesium 1.8 mg/dL (1.6-2.6); Phosphorus 2.1 mg/dL (2.3-4.7)
[2018-10-26] MEDS ORDERED: Magnesium 2 GM/50 ML 2 GM in Premix Bag 1 BAG IVPB SCH (14:30)
[2018-10-26] MEDS ORDERED: Potassium Phosphate 30 MMOL in Sodium Chloride 0.9% 500 ML IVPB SCH (14:30)
[2018-10-26] MEDS ORDERED: Ibuprofen 200 MG TAB PO PRN (15:12)
[2018-10-26] MEDS ORDERED: cefTRIAXone\\ROCEPHIN 1 GM in Sodium Chloride 0.9% 100 ML IVPB SCH (16:00)
--- NOTE | 2018-10-26 16:01 | PRG ---
DATE OF SERVICE: 10/26/2018 CHIEF COMPLAINT: Vomiting. HISTORY OF PRESENT ILLNESS: This is a 33-year-old female with history of iron deficiency anemia and previous small bowel obstruction, 4 C-sections, who came for abdominal distention and intractable nausea and vomiting. She was found to have a small bowel obstruction on the imaging study. SUBJECTIVE: The patient was seen and evaluated at bedside. Her fiance is present. She has no acute complaints. Per nurse, elevated temperature x2 and low H and H. Mild tachycardia. No other acute events. REVIEW OF SYSTEMS: All systems are reviewed and negative except for the ones mentioned above. PHYSICAL EXAMINATION: VITAL SIGNS: Blood pressure 93/58, pulse 112, temperature 102.3, respirations 16, and oxygen saturation 100% on room air. GENERAL: She is in no acute distress. She is awake, alert, and oriented x3. HEAD AND NECK: Pupils are reactive to light. Extraocular muscles are intact. Mucous membranes are moist. Neck is supple. CARDIOVASCULAR: Sinus tachycardia. No murmurs, rubs, or gallops. PULMONARY: Clear to auscultation bilaterally. No wheezes, rhonchi, or crackles. ABDOMEN: Soft, nontender, and nondistended. Positive bowel sounds. EXTREMITIES: No edema. Pulses are symmetric. Range of motion is intact. SKIN: Generalized pallor. Capillary refill is less than 3 seconds. NEUROLOGIC: Cranial nerves 2 through 12 are grossly intact. Deep tendon reflexes are normoreflexic. Muscle tone is normal. LABORATORY DATA: Laboratory abnormalities: Hemoglobin 6.5, hematocrit 23.4, and platelets are normal. Potassium is 3.4, chloride 112, phosphorus 2.1, and magnesium is normal. MEDICATIONS: Reviewed. IMAGING STUDIES: Reviewed. ASSESSMENT AND PLAN: 1. Small bowel obstruction: It appears to be partial. Resolving. Small bowel follow-through test shows path of contrast. General surgeon advanced the diet to clear liquids. 2. Fever: No clear etiology. We will add prophylactic Rocephin. No evidence of infection at this time. Antibiotics are just preventive. 3. Iron deficiency anemia: Slight drop that could be dilutional. General surgeon ordered transfusion of 1 unit of packed red blood cells. No evidence of bleeding. 4. Hypokalemia: Acute, being replaced. Monitor. 5. Hypophosphatemia: Being replaced. Checked phosphorus in the morning. 6. Code status: Full code. 7. Core measure: Sequential compression devices. 8. Disposition: Medical/Surgical Unit. 9. Prognosis: Guarded. 10. Clinical status: Guarded. 11. Expected discharge: To be determined based on resolution of fever and tolerating meals. TOTAL TIME SPENT: 32 minutes. Job ID: [id number]
[2018-10-26] MEDS: cefTRIAXone\\ROCEPHIN 1 GM in Sodium Chloride 0.9% 100 ML IVPB SCH (20:13)
[2018-10-27 07:01] LABS: Anion Gap 11 mmol/L (10-20); BUN (Urea Nitrogen) 4 mg/dL (7.0-18.7); Calc. Creatinine Clearance 99 mL/min (70-130); Calcium 8.2 mg/dL (7.8-10.44); Carbon Dioxide 22 mmol/L (22-29); Chloride 110 mmol/L (98-107); Estimated GFR-MDRD Greater than 90; Glucose 91 mg/dL (70-105); Magnesium 2.2 mg/dL (1.6-2.6); Sodium 140 mmol/L (136-145)
[2018-10-27 08:18] LABS: Hemoglobin 7.6 g/dL (12.0-16.0); Mean Corpuscular HGB CONC 29.5 g/dL (32.0-36.0); Mean Corpuscular Volume 61.1 fL (78.0-98.0); RBC Distribution Width 24.6 % (11.5-14.5); Red Blood Cell (RBC) Count 4.22 mill/uL (4.20-5.40)
[2018-10-27] MEDS: Sodium Chloride 0.9% 1,000 ML IV SCH ×3 (08:21→20:40)
[2018-10-27 08:35] LABS: Mean Platelet Volume 5.9 fL (7.4-10.4); Platelet Count 210 thou/uL (130-400); White Blood Cell (WBC) Count 16.8 thou/uL (4.8-10.8)
[2018-10-27] MEDS ORDERED: Potassium Phosphate 30 MMOL in Sodium Chloride 0.9% 250 ML 250 ML IVPB SCH (08:45)
--- NOTE | 2018-10-27 16:02 | PRG ---
DATE OF SERVICE: 10/27/2018 CHIEF COMPLAINT: Vomiting. HISTORY OF PRESENT ILLNESS: A 33-year-old female with history of iron deficiency anemia, previous small bowel obstruction, 4 C-sections, who came to the Emergency for abdominal distention and intractable nausea and vomiting. She was found to have small-bowel obstruction per imaging. SUBJECTIVE: The patient was seen and evaluated at bedside. No family member present. She was tolerating clear liquids without complications. She was advanced to a regular consistency diet. Per nurse, no more elevated temperature. Elevated white blood cell count. No other acute events. REVIEW OF SYSTEMS: All systems reviewed and negative except for the ones mentioned above. PHYSICAL EXAMINATION: VITAL SIGNS: Blood pressure of 90/54, pulse 81, respiration 16, oxygen saturation 100% on room air, and temperature 98.2 Fahrenheit. GENERAL: No distress. She is awake, alert, and oriented x3. HEAD AND NECK: Pupils are reactive to light. Extraocular muscles are intact. Mucous membranes are moist. Neck is supple. CARDIOVASCULAR: Rhythm and rate are regular. No audible murmurs, rubs, or gallops. PULMONARY: Clear to auscultation bilaterally. No wheezes, rhonchi, or crackles. ABDOMEN: Soft, nontender, and nondistended. Positive bowel sounds. EXTREMITIES: No palpable edema. Pulses are symmetric. Range of motion is intact. SKIN: Generalized pallor. Capillary refill less than 3 seconds. NEUROLOGIC: Cranial nerves 2 through 12 are grossly intact. Deep tendon reflexes are normoreflexic. LABORATORY ABNORMALITIES: Hemoglobin 7.6, hematocrit 26, white blood cell count is 16.8, and platelets are normal. Potassium 3.0, chloride 110, and phosphorus 2. CURRENT MEDICATIONS: Reviewed. ASSESSMENT AND PLAN: 1. Small bowel obstruction: Appears to be resolved. Continue advancing diet as tolerated. 2. Fever: Resolved. No clear etiology. Continue antibiotics for now. 3. Leukocytosis: Appears reactive. Monitor. 4. Iron deficiency anemia: Status post transfusion without evidence of bleeding. Adequate correction after transfusion. 5. Acute hypokalemia: Continue replacement and monitor. 6. Hypophosphatemia: Improved. Continue replacement. 7. Code status: Full code. 8. Core measure: SCDs. 9. Disposition: Medical surgical unit. 10. Prognosis: Guarded. 11. Clinical status: Guarded. 12. Expected discharge: To be determined. Expected discharge in 48-72 hours. TOTAL TIME SPENT: 20 minutes. Job ID: [id number]
[2018-10-27] MEDS: cefTRIAXone\\ROCEPHIN 1 GM in Sodium Chloride 0.9% 100 ML IVPB SCH (20:36)
[2018-10-27] MEDS: PHOS-NAK 1 PKT PACK PO SCH (20:37)
[2018-10-28 05:45] LABS: #Eosinphils 0.2 thou/uL (0.0-0.7); #Lymphocytes 1.6 thou/uL (1.20-3.40); #Neutrophils 7.8 thou/uL (1.40-6.50); %Basophils 0.3 % (0.0-1.0); %Eosinophils 1.7 % (0.0-10.0); %Monocytes 9.4 % (0.0-10.0); %Neutrophils 73.6 % (42.0-75.0); Hemoglobin 6.9 g/dL (12.0-16.0); Mean Corpuscular HGB CONC 29.2 g/dL (32.0-36.0); Mean Corpuscular Hemoglobin 18.3 pg (27.0-31.0); Mean Corpuscular Volume 62.5 fL (78.0-98.0); Mean Platelet Volume 6.2 fL (7.4-10.4); Platelet Count 193 thou/uL (130-400); RBC Distribution Width 24.2 % (11.5-14.5); Red Blood Cell (RBC) Count 3.76 mill/uL (4.20-5.40); White Blood Cell (WBC) Count 10.6 thou/uL (4.8-10.8)
[2018-10-28 05:59] LABS: Phosphorus 2.9 mg/dL (2.3-4.7)
[2018-10-28 06:01] LABS: ALT (SGPT) 20 U/L (8-55); AST (SGOT) 18 U/L (5-34); Albumin 3.2 g/dL (3.5-5.0); Alkaline Phosphatase 39 U/L (40-150); Anion Gap 9 mmol/L (10-20); BUN (Urea Nitrogen) Less than 4 mg/dL (7.0-18.7); Bilirubin, Total 0.3 mg/dL (0.2-1.2); Calc. Creatinine Clearance 101 mL/min (70-130); Calcium 8.1 mg/dL (7.8-10.44); Carbon Dioxide 22 mmol/L (22-29); Chloride 110 mmol/L (98-107); Estimated GFR-MDRD Greater than 90; Globulin 2.9 g/dL (2.4-3.5); Glucose 85 mg/dL (70-105); Potassium 3.4 mmol/L (3.5-5.1); Protein, Total 6.1 g/dL (6.0-8.3); Sodium 138 mmol/L (136-145)
[2018-10-28] MEDS: PHOS-NAK 1 PKT PACK PO SCH (09:44)
[2018-10-28 11:20] VITALS: BP 102/69; TEMP 98.1
--- NOTE | 2018-10-28 17:16 | PRG ---
DATE OF SERVICE: 10/26/2018 This is Mary Mehta NP dictating a report for Kraig Augustine DO. SUBJECTIVE: Ms. Camarillo is a 33-year-old female with recurrent abdominal pain secondary to small-bowel obstruction. The patient having bowel movements and denies any abdominal pain at this time. The patient tolerating the diet and has no complaints at this time. OBJECTIVE: VITAL SIGNS: Temperature 98.1, pulse 80, respirations 16, SpO2 of 98% on room air, blood pressure 102/69. GENERAL: The patient awake, alert, in no distress. HEART: Regular rate and rhythm. LUNGS: No distress. Equal chest rise and fall. ABDOMEN: Soft and nontender. LABORATORY DATA: WBC 10.6, RBC 3.76, hemoglobin 6.9, hematocrit 23.5, MCV 62.5, and MCHC 29.2. Sodium 138, potassium 3.4, chloride 110, BUN less than 4, creatinine 0.74, estimated GFR greater than 90, glucose 85, and calcium 8.1. Phosphorus 2.9. DIAGNOSTICS: There are no diagnostics to review today. IMPRESSION: Small-bowel obstruction, resolved. There is no surgical indication. The patient will be signed off at this time. Please let us know if we can assist further. The patient was examined with Dr. Augustine today during morning rounds. Job ID: [id number]
--- NOTE | 2018-10-28 17:42 | DIS ---
DATE OF ADMISSION: 10/25/2018 DATE OF DISCHARGE: 10/28/2018 DISCHARGING PHYSICIAN: Dr. Goldman. PRIMARY CARE PHYSICIAN: [facility]. ADMITTING DIAGNOSES: 1. Acute small bowel obstruction. 2. Iron deficiency anemia. DISCHARGE DIAGNOSES: 1. Small bowel obstruction: Soft. 2. Fever: Nonspecific. Resolved. 3. Leukocytosis: Reactive. Resolved. 4. Iron deficiency anemia. 5. Acute hypokalemia: Resolved. 6. Acute hypophosphatemia: Resolved. PROCEDURES: Transfusion of 1 unit of packed red blood cells. CONSULTS: General surgeon. SPECIAL IMAGING: Small-bowel series: HOSPITAL COURSE: This is a 33-year-old female with history of iron deficiency anemia and previous small bowel obstruction, who came to the emergency department for abdominal distention and intractable nausea, and vomiting. She received conservative treatment with NG tube for bowel decompression, IV fluid . A small-bowel series showed passage of contrast and she advance diet to clear liquids for one day and later as tolerated. She developed three elevated temperatures throughout the hospitalization that appeared to be reactive. She received empiric antibiotics but not really source of infection was identifiable. Her fever and leukocytosis resolved within 24 hours. She is now tolerating meals, having bowel movement and flatulence. She will be discharged in stable condition. PHYSICAL EXAMINATION: VITAL SIGNS: Blood pressure 93/61, pulse 68, respirations 16, oxygen saturation 98% on room air, temperature 98.5 Fahrenheit. GENERAL: No distress. She is awake, alert, oriented x3. HEAD AND NECK: Pupils are equally reactive to light. Extraocular muscles are intact. Mucous membranes are moist. NECK: Supple. CARDIOVASCULAR: Rhythm and rate irregular. No audible murmurs, rubs, or gallops. PULMONARY: Clear to auscultation bilaterally. No wheezes, rhonchi, or crackles. EXTREMITIES: No palpable edema. Pulses are symmetric. Range of motion is intact. SKIN: Generalized pallor. Capillary refill is less than 3 seconds. NEUROLOGIC: Cranial nerves 2 through 12 are grossly intact. Deep tendon reflexes are normoreflexic. LABORATORY ABNORMALITIES: White blood cell count is in normal range, hemoglobin 7, hematocrit 24. Potassium 3.4. She received correction. Chloride 110. DISPOSITION: Home with self-care. DISCHARGE CONDITION: Stable. DISCHARGE DIET: Regular diet as tolerated. DISCHARGE ACTIVITY: Increase activity as tolerated. DISCHARGE MEDICATIONS: See medical reconciliation for details. DISCHARGE FOLLOWUP: With primary care physician in 1-2 weeks. DISCHARGE INSTRUCTIONS: The patient was recommended to return to the emergency department if symptoms become worrisome. To take her medications as directed and not to miss any appointments. TIME OF DISCHARGE PLANNIN minutes. Job ID: [id number]
== END 2018-10-28 11:21 | disposition home or self-care (01) | DRG 390 ==
LOC: ERS 13:09 → T4-B 16:06
PROVIDERS: ADMIT Internal Medicine; ATTEND Internal Medicine
DX: K56.609 Unspecified intestinal obstruction, unspecified as to partial versus complete obstruction (principal); D50.9 Iron deficiency anemia, unspecified; E83.39 Other disorders of phosphorus metabolism; E87.6 Hypokalemia; R50.9 Fever, unspecified; D72.829 Elevated white blood cell count, unspecified; Z88.1 Allergy status to other antibiotic agents
CPT/HCPCS: 36415; 36430; 74250; 80048; 80053; 83735; 84100; 85025; 85027; 85060; 86850; 86900; 86901; 96374; J0696; J2270; J3475; J3490; J7050; P9016; Q9963